=== PATIENT | female | born 1980 | race Two or more races ===

== ENCOUNTER 2020-07-13 11:05 | Outpatient (REF) | payer OTHER, SELFPAY | END 2020-07-13 11:06 | disposition home or self-care (01) | LOC: HO.LAB 11:05 | PROVIDERS: PCP Internal Medicine; Visit Provider Internal Medicine | DX: Z20.828 Contact with and (suspected) exposure to other viral communicable diseases (principal) | CPT/HCPCS: U0003 ==

== ENCOUNTER 2020-07-27 12:15 | Outpatient (REF) | payer OTHER, SELFPAY | END 2020-07-27 12:16 | disposition home or self-care (01) | LOC: HO.LAB 12:15 | PROVIDERS: Visit Provider Internal Medicine | DX: Z20.828 Contact with and (suspected) exposure to other viral communicable diseases (principal) | CPT/HCPCS: C9803; U0003 ==

== ENCOUNTER 2020-08-03 15:49 | Outpatient (REF) | payer OTHER, SELFPAY | END 2020-08-03 15:50 | disposition home or self-care (01) | LOC: HO.LAB 15:49 | PROVIDERS: PCP Internal Medicine; Visit Provider Internal Medicine | DX: Z20.828 Contact with and (suspected) exposure to other viral communicable diseases (principal) | CPT/HCPCS: C9803; U0003 ==

== ENCOUNTER 2020-09-08 08:40 | Outpatient (REF) | payer OTHER, SELFPAY ==
--- NOTE | 2020-09-08 08:46 | XR_ITS ---
EXAMINATION: XR CHEST CLINICAL INFORMATION: Chest pain COMPARISON: Previous chest x-ray October 2016 TECHNIQUE: 2 views of the chest were obtained. FINDINGS: The cardiac and mediastinal contours are stable. The lungs are clear. There is no pleural effusion or pneumothorax. There is curvature of the thoracic spine to the right. Bony structures are otherwise unremarkable. XR/XR chest 2V IMPRESSION: No evidence for acute disease in the chest.
== END 2020-09-08 08:41 | disposition home or self-care (01) ==
LOC: HO.XRAY 08:40
PROVIDERS: PCP Internal Medicine; Visit Provider Internal Medicine
DX: R07.9 Chest pain, unspecified (principal)
CPT/HCPCS: 71046

== ENCOUNTER 2021-01-07 12:09 | Outpatient (REF) | payer OTHER, SELFPAY ==
--- NOTE | ~2021-01-07 | MM_ITS ---
EXAMINATION: MM SCREENING DIGITAL BREAST TOMOSYNTHESIS, BILATERAL CLINICAL INFORMATION: Screening. Asymptomatic. Prior history reduction mammoplasty 2007. The lifetime risk of breast cancer based on the Tyrer-Cuzick Model is 8%. COMPARISON: Mammography: 11/01/2019, 10/26/2018, 10/24/2017 TECHNIQUE: Digital breast tomosynthesis is performed in both the craniocaudal and mediolateral oblique views along with computer-aided detection (CAD). Synthesized 2D images are generated from the tomosynthesis. FINDINGS: There are scattered areas of fibroglandular density (ACR BI-RADS breast composition Category b). There are no significant masses, abnormal calcifications, or other abnormalities. Parenchymal pattern is similar to prior exams. There is some minor bilateral scarring and benign bilateral anterior round and rim calcifications again seen consistent with the reduction mammoplasty. No significant changes. MM/MM tomosynthesis screening BI IMPRESSION: No mammographic evidence of malignancy. ASSESSMENT: BI-RADS 2: Benign RECOMMENDATION: Routine annual mammography screening. This patient's information was entered into a reminder system with a target due date for their next mammogram.
== END 2021-01-07 12:10 | disposition home or self-care (01) ==
LOC: HO.MAMMO 12:09
PROVIDERS: PCP Internal Medicine; Visit Provider Internal Medicine
DX: Z12.31 Encounter for screening mammogram for malignant neoplasm of breast (principal)
CPT/HCPCS: 77063; 77067

== ENCOUNTER 2022-03-01 08:27 | Outpatient (REF) | payer OTHER, SELFPAY ==
--- NOTE | ~2022-03-01 | XR_ITS ---
EXAMINATION: XR SHOULDER, RIGHT CLINICAL INFORMATION: Pain COMPARISON: None TECHNIQUE: AP external rotation, Grashey, scapular Y, and axillary views of the right shoulder. FINDINGS: Bone alignment is normal. No fracture or dislocation is seen. The glenohumeral joint is normal. There is mild arthritis at the acromioclavicular joint. There is a small soft tissue calcification adjacent to the greater tuberosity. XR/XR shoulder RT min 2V IMPRESSION: Mild arthritis at the acromioclavicular joint and small soft tissue calcification adjacent to the greater tuberosity.
== END 2022-03-01 08:28 | disposition home or self-care (01) ==
LOC: HO.XRAY 08:27
PROVIDERS: PCP Internal Medicine; Visit Provider Internal Medicine
DX: M25.511 Pain in right shoulder (principal)
CPT/HCPCS: 73030

== ENCOUNTER 2022-12-27 09:20 | Outpatient (REF) | payer OTHER, SELFPAY ==
--- NOTE | ~2022-12-27 | MM_ITS ---
EXAMINATION: MM SCREENING DIGITAL BREAST TOMOSYNTHESIS, BILATERAL CLINICAL INFORMATION: Screening. Asymptomatic. The lifetime risk of breast cancer based on the Tyrer-Cuzick Model is 8.2%. COMPARISON: Mammography: January 07, 2021 and studies dating back to October 24, 2017 TECHNIQUE: Digital breast tomosynthesis is performed in both the craniocaudal and mediolateral oblique views along with computer-aided detection (CAD). Synthesized 2D images are generated from the tomosynthesis. FINDINGS: There are scattered areas of fibroglandular density (ACR BI-RADS breast composition Category b). There are no significant masses, abnormal calcifications, or other abnormalities. MM/MM tomosynthesis screening BI IMPRESSION: No significant changes ASSESSMENT: BI-RADS 1: Negative RECOMMENDATION: Routine annual mammography screening. This patient's information was entered into a reminder system with a target due date for their next mammogram.
== END 2022-12-27 09:21 | disposition home or self-care (01) ==
LOC: HO.MAMMO 09:20
PROVIDERS: PCP Internal Medicine; Visit Provider Internal Medicine
DX: Z12.31 Encounter for screening mammogram for malignant neoplasm of breast (principal)
CPT/HCPCS: 77063; 77067

== ENCOUNTER 2023-03-07 09:28 | Outpatient (REF) | payer OTHER, SELFPAY ==
--- NOTE | ~2023-03-07 | XR_ITS ---
EXAMINATION: XR ELBOW, RIGHT CLINICAL INFORMATION: Pain. COMPARISON: None available. TECHNIQUE: AP, lateral, and oblique views of the right elbow. FINDINGS: The bones and soft tissues are normal. No fracture or joint effusion. Alignment is anatomic. Joint spaces are maintained. XR/XR elbow RT 2V IMPRESSION: Normal right elbow.
[2023-03-07 09:40] LABS: MANUAL DIFF FLAG NO
[2023-03-07 09:48] LABS: Basophils Absolute Auto 0.1 X10*3/uL (0.0-0.2); Basophils Percent Auto 0.6 % (0-2); Eosinophils Absolute Auto 0.6 X10*3/uL (0.0-0.4); Eosinophils Percent Auto 5.9 % (0-4); Hematocrit 34.9 % (37.0-47.0); Hemoglobin 11.4 g/dl (12.0-16.0); Imm Gran Abs Auto 0.04 X10*3/uL (0.00-0.03); Imm Gran Pct Auto 0.4 % (0.0-0.4); Lymphocytes Percent Auto 19.3 % (20-40); Mean Corpuscular HGB Conc 32.7 g/dl (31.0-35.0); Mean Corpuscular Hemoglobin 27.9 pg (27.0-33.0); Mean Corpuscular Volume 85.5 fL (80.0-98.0); Monocytes Absolute Auto 0.8 X10*3/uL (0.1-1.2); Monocytes Percent Auto 7.9 % (2-11); Neutrophils Absolute Auto 6.9 x10*3/uL (2.0-8.3); Neutrophils Percent Auto 65.9 % (45-73); Platelet Count 386 X10*3/uL (160-400); Red Blood Count 4.08 X10*6/uL (4.20-5.50); White Blood Count 10.5 X10*3/uL (4.8-10.8)
[2023-03-07 10:38] LABS: Alanine Aminotransferase 14 U/L (0-31); Albumin Level 3.5 g/dL (3.5-5.0); Alkaline Phosphatase 57 U/L (39-117); Aspartate Amino Transferase 13 U/L (5-31); Bilirubin Total 0.4 mg/dL (0.0-1.0); Blood Urea Nitrogen 8 mg/dL (9-16); Calcium 8.8 mg/dL (8.4-10.2); Carbon Dioxide 28 mmol/L (22-29); Chloride 107 mmol/L (96-108); Cholesterol 206 mg/dL; Estimated Glomerular Filt Rate > 60; Glucose Fasting 96 mg/dL (60-99); HDL Cholesterol 54 mg/dL; Iron 55 mcg/dL (30-160); LDL Cholesterol Calculated 134 mg/dl; Percent Iron Saturation 16 % (15-50); Potassium 4.2 mmol/L (3.3-5.1); Sodium 140 mmol/L (135-145); Total Iron Binding Capacity 336 mcg/dL (228-428); Total Protein 6.8 g/dL (6.5-8.0); Triglycerides 92 mg/dL; Unsaturated Iron Binding 281 ug/dL
[2023-03-07 10:46] LABS: Anion Gap 9 (12-20)
[2023-03-07 11:00] LABS: Thyroid Stimulating Hormone 1.25 uIU/mL (0.32-4.0); Vitamin D 25-OH Total 27.9 ng/mL (>30)
== END 2023-03-07 09:29 | disposition home or self-care (01) ==
LOC: HO.LAB 09:28
PROVIDERS: PCP Internal Medicine; Visit Provider Internal Medicine
DX: M25.521 Pain in right elbow (principal); D64.9 Anemia, unspecified; E66.9 Obesity, unspecified; E55.9 Vitamin D deficiency, unspecified
CPT/HCPCS: 36415; 73070; 80053; 80061; 82306; 83540; 84443; 85025

== ENCOUNTER 2023-08-31 12:32 | Emergency (ER) | payer OTHER, SELFPAY ==
--- NOTE | ~2023-08-31 | XR_ITS ---
EXAMINATION: XR CHEST, 2 VIEWS CLINICAL INFORMATION: Cough COMPARISON: 09/08/2020 TECHNIQUE: PA and lateral views of the chest were obtained. FINDINGS: Lungs are clear. No consolidation, pneumothorax, or pleural effusion. Cardiac and mediastinal contours are normal. Pulmonary vasculature is unremarkable. Trachea is midline. Mild to moderate multilevel degenerative disc disease in the thoracic spine with slight scoliotic curvature. XR/XR chest 2V IMPRESSION: No acute cardiopulmonary findings.
[2023-08-31 13:18] VITALS: BP 136/81; PULSE 111; RESP 20; TEMP 37.2; O2SAT 95; BMI 33.3
--- NOTE | 2023-08-31 13:19 | ED_ITS ---
HPI - URI/Sore Throat General Chief Complaint: Upper Respiratory Symptoms Stated Complaint: Flu Like Symptoms Time Seen by Provider: 08/31/23 15:08 Source: patient Mode of arrival: ambulatory Limitations: no limitations History of Present Illness HPI Narrative: 43-year-old female with no known medical history presents to the ER with complaints of 3 weeks of congestion, body aches, sore throat, headache, tactile temps, nausea/vomiting/diarrhea. had exposure to COVID a few weeks ago but her tests at home have been negative at home. no chest pain, difficulty breathing, abdominal pain, neck pain or neck stiffness. Related Data Previous Rx's Medication Instructions Recorded ibuprofen 600 mg tablet 600 mg PO TID #90 tabs 08/11/23 methocarbamol 500 mg tablet 500 mg PO TID 30 days #90 tabs 08/11/23 ondansetron 4 mg disintegrating 4 mg PO Q6H PRN nausea and 08/31/23 tablet vomiting #15 tabs Allergies Allergy/AdvReac Type Severity Reaction Status Date / Time latex [Latex] Allergy Mild RASH/ITCH Verified 08/31/23 13:18 Review of Systems Review of Systems: Yes all other systems are reviewed and are negative Constitutional: Constitutional: Reports no additional constitutional complaints, Reports body ache(s), Denies chills, Denies fever(s), Reports headache(s) and Denies weakness Eyes: Eyes: Reports no additional eye complaints and Denies change in vision ENT: Reports system reviewed and no additional complaints, except as documented, Denies dizziness, Reports headache(s), Reports nasal congestion, Denies nasal discharge, Denies neck pain and Reports sore throat Cardiovascular: Cardiovascular: Reports no additional cardiovascular complaints, Denies chest pain, Denies leg edema and Denies dyspnea Respiratory: Respiratory: Reports no additional respiratory complaints, Denies cough and Denies dyspnea Gastrointestinal: Gastrointestinal: Reports no additional gastrointestinal complaints, Denies abdominal pain, Reports diarrhea, Reports nausea and Reports vomiting Genitourinary: Genitourinary: Reports no additional female genitourinary complaints and Denies urinary incontinence Musculoskeletal: Musculoskeletal: Reports no additional musculoskeletal complaints, Denies back pain, Denies arthralgias, Denies joint swelling, Denies neck pain, Denies numbness and Denies tingling Integumentary/Breasts: Skin/Breast: Reports system reviewed and no additional complaints, except as docu and Denies rash Neurologic: Reports system reviewed and no additional complaints, except as documented, Denies Abnormal speech present, Denies dizziness, Reports headache(s), Denies numbness, Denies tingling and Denies weakness PMFSH Past Medical History Attestation statement: The following information was validated with the patient. Source: old records reviewed and nursing notes reviewed Medical History Obesity, Class II, BMI 35-39.9 Tubal ligation evaluation Upper back pain Right shoulder pain Anemia Surgical History History of tubal ligation Hx of breast reduction, elective Hx laparoscopic cholecystectomy History of carpal tunnel release H/O gastric sleeve Family History Family History Mother High blood pressure Diabetes Father Diabetes High blood pressure Social History Social History Housing: Apartment Alcohol intake: current Alcohol intake frequency: holidays/special occasions only Alcohol type: beer Patient Tobacco Use Status: Never used Tobacco e-Cigarette/Vaping Use: Never Used Second Hand Smoke Exposure: Yes Advance Directives: No service: No Current occupational status: unemployed Current occupational exposures/hazards: No Cognitive needs: No Hearing needs: No Vision needs: Yes Physical Exam Vital Signs: Vital Signs: Last Vital Signs Temp 99.0 F 08/31/23 13:18 Pulse 111 H 08/31/23 13:18 Resp 20 08/31/23 13:18 BP 136/81 08/31/23 13:18 Pulse Ox 95 08/31/23 13:18 BMI result Body Mass Index 33.3 Const: General: cooperative, healthy appearing, comfortable and no acute distress Orientation/consciousness: patient oriented x3 Limitations: no li mitations HEENT: Head: Yes normal to inspection Ears: hearing grossly normal bilaterally and TM's normal bilaterally General nose exam: Normal external nose present Face and sinus: Yes normal facial exam Mouth: Normal oral and palatal mucosa present Throat: Yes posterior oropharynx normal, Yes tonsils normal and Yes uvula midline Eyes: General: appearance normal, both eyes and all related structures Pupils: Equal, round and reactive pupils present Neck: Neck: Yes normal visual inspection, Yes full ROM, Yes no lymphadenopathy and Yes no meningeal signs Chest: Chest palpation & inspection: normal inspection of the chest Resp: Effort & Inspection: normal respiratory effort Auscultation: clear to auscultation bilaterally Cardio: Rate: regular rate Rhythm: regular rhythm Peripheral pulses: Peripheral pulses 2+ throughout GI: Inspection: Yes normal to inspection Palpation (GI): Soft to palpation and nontender Auscultation: normal bowel sounds Back/Spine/Pelvis: Thoracic/Lumbar Spine: thoracic and lumbar spine normal to inspection Skin: General skin exam: no rashes or lesions noted Neuro: General: patient oriented x3, no meningeal signs, no focal motor deficits and normal sensation to monofilament Cranial nerves: Yes Equal, round and reactive pupils present Cognition (Neuro): normal cognition Speech: No Abnormal speech present Gait exam (Neuro): Normal gait present Motor exam (neuro): 5/5 motor strength present throughout Extrem: General: Yes normal to inspection, Yes no pedal edema and Yes no calf tenderness Course Course Course Narrative: RME: 43yo F w/PMHx anemia c/o ECHAVARRIA, myalgias, sore throat, rhinorrhea, cough, wheezing x3 weeks. +sick contacts. Tested negative on home COVID test. low grade temp, tachycardic likely from fever Viral testing, CXR ordered Full HPI, ROS and PE to be performed by primary ED provider. Reevaluation(s) Reevaluation #1: flu screen is positive. No hypoxia or tachypnea. Patient is tolerating p.o.. Reviewed supportive care at home. Reviewed worrisome signs and symptoms of when to return to the emergency room. Comfortable plan for discharge home. Medical Decision Making Medical Decision Making MDM Narrative: 43-year-old female with no known medical history presents to the ER with complaints of 3 weeks of congestion, body aches, sore throat, headache, tactile temps, nausea/vomiting/diarrhea. had exposure to COVID a few weeks ago but her tests at home have been negative at home. no chest pain, difficulty breathing, abdominal pain, neck pain or neck stiffness. exam is benign. Vitals are stable. Will send viral testing, change chest x-ray Differential Diagnosis Differential Diagnoses: The differential diagnosis associated with the presentation includes influenza, viral syndrome, otitis media, strep pharyngitis, pneumonia Admission/Observation Consideration of admission/observation: Escalation of care including admission/observation considered no hypoxia or tachypnea requiring supplemental oxygen and or admission Lab Data MDM Lab Attestation statement: I reviewed the patient's lab results. Labs: Lab Results 08/31/23 Range/Units 13:26 Influenza Type A (PCR) POSITIVE A (Negative) Influenza Type B (PCR) NEGATIVE (Negative) RSV RNA Qual (PCR) NEGATIVE (Negative) SARS-CoV-2 RNA (RT-PCR) NEGATIVE (Negative) S. pyogenes GrpA ANNE Negative (Negative) Independent Interpretation I performed an independent interpretation of an: Plain X-Ray Interpretation: I independently reviewed the x-ray and agree with Radiology report Radiology Impression Discussion of test interpretation with radiology: I have reviewed the radiologist's reading. Radiologist Impression: [address] [address] XRay Report Signed Patient: Janice Silva MR#: [id number] : 1980 Acct:[id number] Age/Sex: 43 / F ADM Date: 08/31/23 Loc: .ED Attending Dr: Ordering Physician: Nancy Mary Date of Service: 08/31/23 Procedure(s): XR chest 2V Accession Number(s): [id number] cc: Nancy Mary; Jessika Cornejo MD~ EXAMINATION: XR CHEST, 2 VIEWS CLINICAL INFORMATION: Cough COMPARISON: 09/08/2020 TECHNIQUE: PA and lateral views of the chest were obtained. FINDINGS: Lungs are clear. No consolidation, pneumothorax, or pleural effusion. Cardiac and mediastinal contours are normal. Pulmonary vasculature is unremarkable. Trachea is midline. Mild to moderate multilevel degenerative disc disease in the thoracic spine with slight scoliotic curvature. XR/XR chest 2V IMPRESSION: No acute cardiopulmonary findings. Independent Historian Clinical information obtained from an independent historian. History obtained from or confirmed by: Spouse Prescription Management I considered prescription management with: Antiviral Discharge Plan Discharge Clinical Impression: Influenza Patient Disposition: Home, Self-Care Instructions: Influenza (ED) Additional Instructions: alternate Motrin /Tylenol for any pain or fever, increase fluids, rest Return for any worsening symptoms Follow-up with primary care doctor for any persistent symptoms Prescriptions: New ondansetron 4 mg tablet,disintegrating 4 mg PO Q6H PRN (Reason: nausea and vomiting) Qty: 15 0RF No Action methocarbamol 500 mg tablet 500 mg PO TID 30 Days Qty: 90 0RF ibuprofen 600 mg tablet 600 mg PO TID Qty: 90 0RF Referrals: Jessika Cornejo MD [Primary Care Provider] - 1 week Stand Alone Forms: Work/School Release
[2023-08-31 14:14] LABS: IDNOW Serial# 08D9AD1C; Strep A Nucleic Acid Negative (Negative)
[2023-08-31 14:37] LABS: Influenza A PCR POSITIVE (Negative); Influenza B PCR NEGATIVE (Negative); Resp Syncy Virus RNA Qual PCR NEGATIVE (Negative); SARS COV2 PCR INHOUSE NEGATIVE (Negative)
[2023-08-31 16:20] VITALS: BP 114/66; PULSE 98; RESP 20; TEMP 37; O2SAT 96
== END 2023-08-31 16:42 | disposition home or self-care (01) ==
PROVIDERS: Physician Assistant; Emergency Provider Emergency Medicine Emergency Medical Services; PCP Internal Medicine
DX: J10.1 Influenza due to other identified influenza virus with other respiratory manifestations (principal); M79.10 Myalgia, unspecified site; R11.2 Nausea with vomiting, unspecified; R05.9 Cough, unspecified; Z20.822 Contact with and (suspected) exposure to COVID-19; Z20.828 Contact with and (suspected) exposure to other viral communicable diseases
CPT/HCPCS: 0241U; 71046; 87651; 99282; 99283

== ENCOUNTER 2024-01-02 09:23 | Outpatient (REF) | payer OTHER, SELFPAY ==
--- NOTE | ~2024-01-02 | MM_ITS ---
EXAMINATION: MM SCREENING DIGITAL BREAST TOMOSYNTHESIS, BILATERAL CLINICAL INFORMATION: Screening. Asymptomatic. Prior history reduction mammoplasty 2007. COMPARISON: Mammography: 12/27/2022, 01/07/2021, 11/01/2019 (new baseline after mammoplasty), 10/26/2018, 10/24/2017 TECHNIQUE: Digital breast tomosynthesis is performed in both the craniocaudal and mediolateral oblique views along with computer-aided detection (CAD). Synthesized 2D images are generated from the tomosynthesis. FINDINGS: There are scattered areas of fibroglandular density (ACR BI-RADS breast composition Category b). There are stable bilateral skin calcifications. There is a stable parenchymal asymmetry in the 6:00 axis of the left breast on the cc view, likely related to reduction mammoplasty scarring. There are a few scattered dystrophic calcifications. There are no suspicious masses, suspicious grouped calcifications, or areas of architectural distortion in either breast. The parenchymal pattern is stable from prior exams. No skin or axillary abnormalities. MM/MM tomosynthesis screening BI IMPRESSION: -No mammographic evidence of malignancy. -Stable benign post reduction mammoplasty changes. ASSESSMENT: BI-RADS BI-RADS 2 - Benign Findings RECOMMENDATION: Routine annual mammography screening. 1 year F/U This examination should not preclude the clinical evaluation of a suspicious palpable abnormality. This patient's information was entered into a reminder system with a target due date for their next mammogram.
== END 2024-01-02 09:24 | disposition home or self-care (01) ==
LOC: HO.MAMMO 09:23
PROVIDERS: PCP Internal Medicine; Visit Provider Internal Medicine
DX: Z12.31 Encounter for screening mammogram for malignant neoplasm of breast (principal)
CPT/HCPCS: 77063; 77067

== ENCOUNTER → 2024-01-02 09:30 | Outpatient (BNV) | payer OTHER, SELFPAY | PROVIDERS: PCP Internal Medicine; Visit Provider Radiology Diagnostic Radiology | DX: Z12.31 Encounter for screening mammogram for malignant neoplasm of breast (principal) | CPT/HCPCS: 77063; 77067 ==

== ENCOUNTER 2024-01-22 17:13 | Outpatient (AMB) | payer OTHER, SELFPAY ==
[2024-01-22 17:21] VITALS: BP 120/70; BMI 32.7
--- NOTE | 2024-01-22 17:21 | MHC.PC.OV ---
Vital Signs 01/22/24 17:21 Height 5 ft 2 in Weight 179 lb BMI 32.7 BP 120/70 Blood Pressure Location Lt brachial Position Sitting Intake Visit Reasons: f/u Arm Pain Intake Note: Patient here for a follow up Arm pain Passenger Attendant Required: No Accompanied by: Self / Same As Patient Allergies latex [Latex] Allergy (Mild, Verified 01/22/24 17:47) RASH/ITCH Medication List - Last Reconciled 01/22/24 by Jessika Richards MD ibuprofen 600 mg PO TID methocarbamol 500 mg PO TID 30 days ondansetron 4 mg PO Q6H PRN Tobacco use date assessed: 01/22/24 Dental Screening Dental Screen Date: 01/22/24 Did you have a dental visit in the last 12 months?: Yes Did you have a dental problem in the last 6 months where you did not have access to dental care?: No Was dental information given to patient?: Patient has dentist HPI HPI Comments History of Present Illness Details This is a 43-year-old female that complains of right shoulder pain and right elbow pain that has been present for over a month. Has full active range of motion. X-ray of the elbow was normal. Will be referred to Ortho. [facility] Medical History (Updated 01/22/24 @ 17:55 by Jessika Richards MD) Obesity, Class II, BMI 35-39.9 Tubal ligation evaluation Upper back pain Right shoulder pain Anemia Surgical History History of tubal ligation Hx of breast reduction, elective Hx laparoscopic cholecystectomy History of carpal tunnel release H/O gastric sleeve Family History Mother High blood pressure Diabetes Father Diabetes High blood pressure Social History Housing: Apartment Alcohol intake: current Alcohol intake frequency: holidays/special occasions only Alcohol type: beer Patient Tobacco Use Status: Never used Tobacco e-Cigarette/Vaping Use: Never Used Second Hand Smoke Exposure: Yes service: No Current occupational status: employed Current occupational exposures/hazards: No Cognitive needs: No Hearing needs: No Vision needs: Yes Questionnaire PHQ-9 Over the last 2 weeks, how often have you been bothered by any of the following problems? 1. Little interest or pleasure in doing things: not at all 2. Feeling down, depressed, or hopeless: not at all 3. Trouble falling or staying asleep, or sleeping too much: not at all 4. Feeling tired or having little energy: not at all 5. Poor appetite or overeating: not at all 6. Feeling bad about yourself - or that you are a failure or have let yourself or your family down: not at all 7. Trouble concentrating on things, such as reading the newspaper or watching television: not at all 8. Moving or speaking so slowly that other people could have noticed. Or the opposite - being so fidgety or restless that you have been moving around a lot more than usual: not at all 9. Thoughts that you would be better off or of hurting yourself in some way: not at all Total score: 0 Depression Screening Interpretation: Negative Depression Screening Done: Yes 38236 - PHQ-9 Billing: Yes Source: Developed by Drs. Abhi Ramirez, Keila Grove, Rafael Fleming and colleagues, with an educational suzanne from [employer]. Thrive Questionnaire Date Thrive assessed: 01/22/24 I am a: Patient What is your living situation today?: I have a steady place to live Within the past 12 months, did the food you bought not last and you didn't have the money to get more?: Never true Within the past 12 months, did you worry whether your food would run out before you got money to buy more?: Never true Do you have trouble paying for medicines?: No Do you have trouble getting transportation to medical appointments?: No Do you have trouble paying your heating and electricity bill?: No Do you have trouble taking care of your child, family member or friend?: No Do you have trouble with day-to-day activities such as bathing, preparing meals, shopping, managing finances, etc.?: No Are you currently unemployed and looking for a job?: No Are you interested in more education?: No Please select the resources that you would like help with: None Currently or been in a relationship where the following occur: no concerns reported THRIVE Score: 0 AUDIT C Alcohol Use Questionnaire (AUDIT-C) 1. How often do you have a drink containing alcohol?: Monthly or less 2. How many drinks containing alcohol do you have on a typical day when you are drinking?: 1 or 2 3. How often do you have six or more drinks on one occasion?: Never Total Score: 1 TOBI-7 AMB Questionnaire TOBI-7 Date TOBI - 7 assessed: 01/22/24 Feeling nervous, anxious, or on edge: 3 = Nearly every day Not being able to stop or control worryin = Not at all Worrying too much about different things: 1 = Several days Trouble relaxin = More than half the days Being so restless that it is hard to sit still: 0 = Not at all Becoming easily annoyed or irritable: 2 = More than half the days Feeling afraid as if something awful might happen: 3 = Nearly every day Total TOBI-7 score (0-4 normal; 5-9 mild; 10-14 moderate; 15-21 severe): 11 Source: Developed by Drs. Abhi Ramirez, Keila Grove, Rafael Fleming and colleagues, with an educational suzanne from [employer]. TOBI-7 Assessment Billing TOBI-7 Assessment Tool: TOBI-7 Assessment 57058 Review of Systems Const All systems reviewed & are unremarkable except as noted in HPI and below Eyes Reports no additional complaints, Denies change in vision and Denies other visual disturbances Card Denies chest pain at rest, Denies chest pain with activity, Denies edema, Denies irregular heart rhythm, Denies claudication, Denies dyspnea, Denies dyspnea on exertion, Denies orthopnea, Denies paroxysmal nocturnal dyspnea and Denies slow heart rate Resp Denies cough, Denies dyspnea and Denies dyspnea on exertion Musc Reports arthralgias Physical exam (Primary Care) Vital Signs: Last Vital Signs BP 120/70 01/22/24 17:21 BMI result Body Mass Index 32.7 Tobacco/Smoking Status: Tobacco use Status Tobacco use date assessed 01/22/24 01/22/24 17:28 Patient Tobacco Use Status Never used Tobacco 01/22/24 17:28 e-Cigarette/Vaping Use Never Used 01/22/24 17:28 PHQ-9: PHQ-9 Score PHQ-9: Total score 0 01/22/24 17:53 Depression Screening Interpretation: Negative Thrive Assessment: Date of Thrive Assessment Date Thrive assessed 01/22/24 01/22/24 17:28 Currently or been in a relationship where the following occur: no concerns reported Resp Effort & Inspection: normal respiratory effort Auscultation: clear to auscultation bilaterally Cardio Jugular venous distension: no JVD Rate: regular rate Rhythm: regular rhythm Heart sounds: S1 normal heart sound present and S2 normal heart sound present Extrem General: Yes full ROM Assessment and Plan Assessment & Plan (1) Pain in right arm: Code(s): M79.601 - Pain in right arm Plan: Follow-up with ortho. (2) Right elbow pain: Code(s): M25.521 - Pain in right elbow Plan: Follow-up with ortho. Orders: Orders XR shoulder RT min 2V Today M25.511 - Pain in right shoulder XR humerus RT Today M79.601 - Pain in right arm Referrals Orthopedics Referral M25.521 - Pain in right elbow Medications: Refilled ondansetron 4 mg PO Q6H PRN 15 tabs 0RF nausea and vomiting methocarbamol 500 mg PO TID 90 tabs 0RF 30 days ibuprofen 600 mg PO TID 90 tabs 0RF Coding Level of Care Code Est Pt Level 3 (19612) Diagnoses Pain in right arm M79.601 Right elbow pain M25.521 Additional Codes TOBI-7 Assessment Billing - TOBI-7 Assessment Tool: TOBI-7 Assessment 15074 ([id number]) Time Spent (min) 19
== END 2024-01-22 17:59 | disposition home or self-care (01) ==
PROVIDERS: PCP Internal Medicine; Visit Provider Internal Medicine
DX: M79.601 Pain in right arm (principal); M25.521 Pain in right elbow
CPT/HCPCS: 99213

== ENCOUNTER 2024-02-15 12:50 | Outpatient (REF) | payer OTHER, SELFPAY ==
--- NOTE | ~2024-02-15 | XR_ITS ---
EXAMINATION: XR RIGHT HUMERUS XR RIGHT SHOULDER CLINICAL INFORMATION: Patient states right arm and shoulder pain, unable to lift arm without pain. No trauma. COMPARISON: Right elbow 03/07/2023, right shoulder 03/01/2021. TECHNIQUE: 3 views of the right shoulder. 3 views of the right humerus. FINDINGS: RIGHT SHOULDER: Moderate degenerative changes in the acromioclavicular joint. Glenohumeral alignment preserved. Dextroscoliosis with degenerative changes in the partially imaged upper thoracic spine. Increased curvilinear calcification in the soft tissues along the lateral aspect of the greater tuberosity. RIGHT HUMERUS: Increased curvilinear calcifications in the soft tissues along the superolateral aspect of the humeral head. The humerus appears intact. Please refer to the separate report for more detailed evaluation regarding distal humerus/elbow. XR/XR humerus RT IMPRESSION: 1. Moderate degenerative changes in the acromioclavicular joint. 2. Increased curvilinear calcification in the soft tissues along the lateral aspect of the greater tuberosity. 3. Please refer to the separate report for more detailed evaluation regarding distal humerus/elbow.
--- NOTE | ~2024-02-15 | XR_ITS ---
EXAMINATION: XR RIGHT HUMERUS XR RIGHT SHOULDER CLINICAL INFORMATION: Patient states right arm and shoulder pain, unable to lift arm without pain. No trauma. COMPARISON: Right elbow 03/07/2023, right shoulder 03/01/2021. TECHNIQUE: 3 views of the right shoulder. 3 views of the right humerus. FINDINGS: RIGHT SHOULDER: Moderate degenerative changes in the acromioclavicular joint. Glenohumeral alignment preserved. Dextroscoliosis with degenerative changes in the partially imaged upper thoracic spine. Increased curvilinear calcification in the soft tissues along the lateral aspect of the greater tuberosity. RIGHT HUMERUS: Increased curvilinear calcifications in the soft tissues along the superolateral aspect of the humeral head. The humerus appears intact. Please refer to the separate report for more detailed evaluation regarding distal humerus/elbow. XR/XR shoulder RT min 2V IMPRESSION: 1. Moderate degenerative changes in the acromioclavicular joint. 2. Increased curvilinear calcification in the soft tissues along the lateral aspect of the greater tuberosity. 3. Please refer to the separate report for more detailed evaluation regarding distal humerus/elbow.
== END 2024-02-15 12:51 | disposition home or self-care (01) ==
LOC: HO.XRAY 12:50
PROVIDERS: PCP Internal Medicine; Visit Provider Internal Medicine
DX: M25.511 Pain in right shoulder (principal); M79.601 Pain in right arm
CPT/HCPCS: 73030; 73060

== ENCOUNTER 2024-02-26 08:44 | Outpatient (REF) | payer OTHER, SELFPAY ==
--- NOTE | ~2024-02-26 | XR_ITS ---
EXAMINATION: XR ELBOW, RIGHT CLINICAL INFORMATION: Pain at the right elbow. COMPARISON: None available. TECHNIQUE: AP, lateral, and oblique views of the right elbow. FINDINGS: The bones and soft tissues are normal. No fracture or joint effusion. Alignment is anatomic. Joint spaces are maintained. XR/XR elbow RT min 3V IMPRESSION: Normal right elbow.
== END 2024-02-26 08:45 | disposition home or self-care (01) ==
LOC: HO.HOSX 08:44
PROVIDERS: Visit Provider Physician Assistant
DX: M75.31 Calcific tendinitis of right shoulder (principal); M77.11 Lateral epicondylitis, right elbow
CPT/HCPCS: 20610; 73080; J1010

== ENCOUNTER 2024-02-26 10:32 | Outpatient (AMB) | payer OTHER, SELFPAY ==
[2024-02-26 10:36] VITALS: BMI 32.7
--- NOTE | 2024-02-26 10:36 | A.OFFVIS_ITS ---
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 Patient reports her pain has been present for about 6 months and the past month her pain has increased. Denies injury. Limited ROM. States constant pain in her shoulder that radiates down to her elbow. Denies numbness or tingling. No previous tx. Finds no relief with ibuprofen. 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 She currently states she has constant pain and limited ROM in her shoulder that radiates down to her elbow. Her pain is aggravated with sleeping. She denies any numbness or tingling. She finds mild relief with ibuprofen. She denies any injury and has not had any treatment in the past. She does not have a history of diabetes. [facility] Medical History Obesity, Class II, BMI 35-39.9 Tubal ligation evaluation Upper back pain Right shoulder pain Anemia Surgical History History of tubal ligation Hx of breast reduction, elective Hx laparoscopic cholecystectomy History of carpal tunnel release H/O gastric sleeve Family History Mother High blood pressure Diabetes Father Diabetes High blood pressure Social History (Updated 02/26/24 @ 10:58 by BREANNA Krueger) Housing: Apartment Alcohol intake: current Alcohol intake frequency: holidays/special occasions only Alcohol type: beer Patient Tobacco Use Status: Never used Tobacco e-Cigarette/Vaping Use: Never Used Second Hand Smoke Exposure: Yes service: No Current occupational status: employed 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, 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 Current occupational exposures/hazards: No Cognitive needs: No Hearing needs: No Vision needs: Yes Review of Systems Const All systems reviewed & are unremarkable except as noted in HPI and below Physical Exam Vital Signs: BMI result Body Mass Index 32.7 Const General: cooperative, healthy appearing, comfortable, no acute distress, well developed and alert Orientation/consciousness: patient oriented x3 HEENT Head: Yes normal to inspection, Yes normocephalic and Yes atraumatic Eyes General: appearance normal, both eyes and all related structures Resp Effort & Inspection: normal respiratory effort and able to speak in complete sentences Cardio Rate: regular rate Peripheral pulses: Peripheral pulses 2+ throughout GI Palpation (GI): Soft to palpation Skin Lesions: no lesions Rashes: no rashes Neuro General: patient oriented x3 Extrem Other: Right shoulder: Normal to inspection. Tenderness over the bicipital groove and along the deltoid region of the shoulder. Forward flexion to 175, external rotation to 90, internal rotation to S1. 5/5 RTC strength. Negative Sheppard and cross body abduction. NVI. Right elbow: Skin intact. No erythema or swelling. ROM full without pain. Tenderness over the lateral epicondyle and pain with resisted wrist extension. NVI. Office Procedures Joint Injection/Drain Joint Injection/Drain Primary Site: right shoulder Prep: site was prepped using aseptic technique, ethochloride spray was applied and injection warnings given Injected: 80 mg of, DepoMedrol, with 8 mL of, 1% plain lidocaine and in the subcromial space Approach Used: posterolateral Procedure: The patient tolerated the procedure well and there was some relief with the local anesthesia Coding 40206 - Glenohumeral/Tronchanteric Bursa/Intraarticular Procedure code (CPT) selection complete Results Reviewed Results Reviewed: Xrays were obtained in the office today and personally reviewed by me of the right elbow negative for acute fracture or dislocations. Assessment & Plan Assessment & Plan (1) Calcific tendonitis of right shoulder: Code(s): M75.31 - Calcific tendinitis of right shoulder Category: Medical (2) Lateral epicondylitis, right elbow: Code(s): M77.11 - Lateral epicondylitis, right elbow Category: Medical Plan We discussed options today, which include steroid injection. The patient did consent to move forward with the right shoulder injection, which was tolerated well. I recommended rest, ice, and elevation and OTC anti-inflammatories as needed for discomfort. She was also given a course of physical therapy in the office today for her right shoulder and right elbow. If symptoms persist or worsen over the next 6-8 weeks, patient will contact the office, otherwise follow-up as needed. Orders: Orders XR elbow RT min 3V Today M25.521 - Pain in right elbow PT Evaluation and Treatment Today M75.31 - Calcific tendinitis of right shoulder, M77.11 - Lateral epicondylitis, right elbow Patient Instructions: Scribed for Maya Obrien PA-C, by Kvng May biomedical instrument technician, on 02/26/2024 at 10:45 AM EST.? I, Maya Obrien PA-C, have personally reviewed and agree with the information entered by the scribe. Coding Level of Care Code New Pt Level 3 (74110) Diagnoses Calcific tendonitis of right shoulder M75.31 Lateral epicondylitis, right elbow M77.11 CPT Codes Coding - Joint 7: 49448 - Glenohumeral/Tronchanteric Bursa/Intraarticular ([id number])
== END 2024-02-26 11:59 | disposition home or self-care (01) ==
PROVIDERS: PCP Internal Medicine; Visit Provider Physician Assistant
DX: M75.31 Calcific tendinitis of right shoulder (principal); M77.11 Lateral epicondylitis, right elbow
CPT/HCPCS: 20610; 99204

== ENCOUNTER 2024-04-23 14:44 | Outpatient (AMB) | payer SELFPAY ==
[2024-04-23 14:47] VITALS: BP 122/80; BMI 34.2
--- NOTE | 2024-04-23 14:47 | MHC.PC.OV ---
Vital Signs 04/23/24 14:47 Height 5 ft 2 in Weight 187 lb BMI 34.2 BP 122/80 Blood Pressure Location Lt brachial Position Sitting Intake Visit Reasons: Annual Exam Intake Note: Patient here for an annual physical exam Cash Applications Associate Required: No Accompanied by: Self / Same As Patient Allergies latex [Latex] Allergy (Mild, Verified 04/23/24 15:00) RASH/ITCH Medication List - Last Reconciled 04/23/24 by Jessika Richards MD ibuprofen 600 mg PO TID methocarbamol 500 mg PO TID 30 days ondansetron 4 mg PO Q6H PRN Tobacco use date assessed: 01/22/24 Dental Screening Dental Screen Date: 01/22/24 HPI HPI Comments History of Present Illness Details This is a 43-year-old female that comes for her physical exam. Mammogram done 2023 was normal. Last Pap smear was as per patient over 4 years ago. No family history of colon cancer and she will prefer to do Cologuard for her screen. She is obese with a BMI of 34.2 and has tried diet and exercise with no significant improvement. I will start her on Wegovy. [facility] Medical History Obesity, Class II, BMI 35-39.9 Tubal ligation evaluation Upper back pain Right shoulder pain Anemia Surgical History History of tubal ligation Hx of breast reduction, elective Hx laparoscopic cholecystectomy History of carpal tunnel release H/O gastric sleeve Family History Mother High blood pressure Diabetes Father Diabetes High blood pressure Social History Housing: Apartment Alcohol intake: current Alcohol intake frequency: holidays/special occasions only Alcohol type: beer Patient Tobacco Use Status: Never used Tobacco e-Cigarette/Vaping Use: Never Used Second Hand Smoke Exposure: Yes service: No Current occupational status: employed 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 Abhi Ramirez, Keila Grove, Rafael Fleming and colleagues, with an educational suzanne from [employer]. Review of Systems Const All systems reviewed & are unremarkable except as noted in HPI and below Card Denies chest pain at rest, Denies chest pain with activity, Denies edema, Denies irregular heart rhythm, Denies claudication, Denies dyspnea, Denies dyspnea on exertion, Denies orthopnea, Denies paroxysmal nocturnal dyspnea and Denies slow heart rate Resp Denies cough, Denies dyspnea and Denies dyspnea on exertion GI Denies abdominal pain, Denies change in bowel habits, Denies excessive flatus, Denies nausea and Denies vomiting Denies urinary incontinence, Denies urinary hesitancy and Denies urinary urgency Musc Denies abnormal gait, Denies atrophy, Denies deformity and Denies limited range of motion Skin/Breast Denies bleeding lesions, Denies changing lesions and Denies rash Neuro Denies abnormal gait and Denies lack of coordination Physical exam (Primary Care) Vital Signs: Last Vital Signs BP 122/80 04/23/24 14:47 BMI result Body Mass Index 34.2 BMI Assessment/Plan discussion: High BMI High, discussed plan: lifestyle, weight reduction, dietary and physical activity Tobacco/Smoking Status: Tobacco use Status Tobacco use date assessed 01/22/24 04/23/24 14:52 Patient Tobacco Use Status Never used Tobacco 04/23/24 14:52 e-Cigarette/Vaping Use Never Used 04/23/24 14:52 Thrive Assessment: Date of Thrive Assessment Date Thrive assessed 01/22/24 04/23/24 14:52 [facility] Head: Yes normal to inspection, Yes normocephalic and Yes atraumatic Ears: external ears normal Eyes General: appearance normal, both eyes and all related structures Eyelids: Yes eyelids normal Conjunctivae: conjunctivae normal Neck Neck: Yes normal visual inspection and Yes supple Resp Effort & Inspection: normal respiratory effort Auscultation: clear to auscultation bilaterally Cardio Jugular venous distension: no JVD Rate: regular rate Rhythm: regular rhythm Heart sounds: S1 normal heart sound present and S2 normal heart sound present GI Inspection: Yes normal to inspection Palpation (GI): Soft to palpation and nontender Auscultation: normal bowel sounds Skin General skin exam: no rashes or lesions noted Neuro General: no focal motor deficits Extrem General: Yes full ROM Psych Appearance: grossly normal Assessment and Plan Assessment & Plan (1) Physical exam: Code(s): Z00.00 - Encounter for general adult medical examination without abnormal findings Plan: Repeat in a year. Orders: Orders Lipid Panel Today Z00.00 - Encounter for general adult medical examination without abnormal findings Comprehensive [place]. Panel Fast Today Z00.00 - Encounter for general adult medical examination without abnormal findings Referrals INSTRUMENT CALIBRATOR Referral Z12.4 - Encounter for screening for malignant neoplasm of cervix Cologuard Test Z12.11 - Encounter for screening for malignant neoplasm of colon, Z12.12 - Encounter for screening for malignant neoplasm of rectum Medications: New semaglutide (weight loss) (Seema) administer weeks 1 through 4 of therapy 0.25 mg (0.5 mL) subcut QWEEK 2 mL 0RF 4 weeks E66.9 - Obesity, unspecified, Z68.34 - Body mass index [BMI] 34.0-34.9, adult Coding Level of Care Code Est Pt Prev Care 40-64y(34949) Diagnoses Physical exam Z00.00 Time Spent (min) 31
== END 2024-04-23 15:12 | disposition home or self-care (01) ==
PROVIDERS: PCP Internal Medicine; Visit Provider Internal Medicine
DX: Z00.00 Encounter for general adult medical examination without abnormal findings (principal)
CPT/HCPCS: 99396

== ENCOUNTER 2024-12-09 16:54 | Outpatient (AMB) | payer OTHER, SELFPAY ==
--- NOTE | 2024-12-09 16:59 | A.OFFPC_ITS ---
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 Required: No Accompanied by: Daughter Allergies latex [Latex] Allergy (Mild, Verified 12/09/24 17:05) RASH/ITCH Medication List - Last Reconciled 12/09/24 by Jessika Richards MD ibuprofen 600 mg PO TID semaglutide (weight loss) (Wegovy) 0.25 mg (0.5 mL) subcut QWEEK 4 weeks Tobacco use date assessed: 12/09/24 Dental Screening Dental Screen Date: 12/09/24 Did you have a dental visit in the last 12 months?: No Did you have a dental problem in the last 6 months where you did not have access to dental care?: No Was dental information given to patient?: Patient has dentist HPI HPI Comments History of Present Illness Details The patient is a 44-year-old female presenting with symptoms of an u pper respiratory infection and concerns regarding obesity management. Following a recent trip to [place], she developed congestion, a persistent cough, and nocturnal fever sensations. These symptoms emerged shortly after her return and have not improved with TeraFlu. She has a history of undergoing bariatric surgery five years ago, which has been followed by challenges in maintaining weight loss, resulting in a current BMI of Class II obesity. The patient maintains a controlled diet and hydration, although recent gym attendance has lapsed. She seeks further assistance in weight management due to persistent excess weight post-surgery. [facility] Medical History (Updated 12/09/24 @ 17:15 by Jessika Richards MD) Obesity, Class II, BMI 35-39.9 Tubal ligation evaluation Upper back pain Right shoulder pain Anemia Surgical History History of tubal ligation Hx of breast reduction, elective Hx laparoscopic cholecystectomy History of carpal tunnel release H/O gastric sleeve Family History Mother High blood pressure Diabetes Father Diabetes High blood pressure Social History Housing: Apartment Alcohol intake: current Alcohol intake frequency: holidays/special occasions only Alcohol type: beer Patient Tobacco Use Status: Never used Tobacco e-Cigarette/Vaping Use: Never Used Second Hand Smoke Exposure: Yes service: No Current occupational status: employed 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 1. Little interest or pleasure in doing things: not at all 2. Feeling down, depressed, or hopeless: not at all 3. Trouble falling or staying asleep, or sleeping too much: not at all 4. Feeling tired or having little energy: not at all 5. Poor appetite or overeating: not at all 6. Feeling bad about yourself - or that you are a failure or have let yourself or your family down: not at all 7. Trouble concentrating on things, such as reading the newspaper or watching television: not at all 8. Moving or speaking so slowly that other people could have noticed. Or the opposite - being so fidgety or restless that you have been moving around a lot more than usual: not at all 9. Thoughts that you would be better off or of hurting yourself in some way: not at all Total score: 0 Depression Screening Interpretation: Negative Depression Screening Done: Yes 07532 - PHQ-9 Billing: Yes Source: Developed by Drs. Abhi Ramirez, Keila Grove, Rafael Fleming and colleagues, with an educational suzanne from [employer] Thrive Questionnaire Date Thrive assessed: 12/09/24 I am a: Patient What is your living situation today?: I have a steady place to live Within the past 12 months, did the food you bought not last and you didn't have the money to get more?: Never true Within the past 12 months, did you worry whether your food would run out before you got money to buy more?: Never true Do you have trouble paying for medicines?: No Do you have trouble getting transportation to medical appointments?: No Do you have trouble paying your heating and electricity bill?: No Do you have trouble taking care of your child, family member or friend?: No Do you have trouble with day-to-day activities such as bathing, preparing meals, shopping, managing finances, etc.?: No Are you currently unemployed and looking for a job?: No Are you interested in more education?: No Please select the resources that you would like help with: None Currently or been in a relationship where the following occur: No concerns reported THRIVE Score: 0 AUDIT C Alcohol Use Questionnaire (AUDIT-C) 1. How often do you have a drink containing alcohol?: Monthly or less 2. How many drinks containing alcohol do you have on a typical day when you are drinking?: 1 or 2 3. How often do you have six or more drinks on one occasion?: Never Total Score: 1 Score Reviewed/Action Taken: No TOBI-7 AMB Questionnaire TOBI-7 Date TOBI - 7 assessed: 12/09/24 Feeling nervous, anxious, or on edge: 0 = Not at all Not being able to stop or control worryin = Not at all Worrying too much about different things: 0 = Not at all Trouble relaxin = Not at all Being so restless that it is hard to sit still: 0 = Not at all Becoming easily annoyed or irritable: 0 = Not at all Feeling afraid as if something awful might happen: 0 = Not at all Total TOBI-7 score (0-4 normal; 5-9 mild; 10-14 moderate; 15-21 severe): 0 Source: Developed by Drs. Abhi Ramirez, Keila Grove, Rafael Fleming and colleagues, with an educational suzanne from [employer] TOBI-7 Assessment Billing TOBI-7 Assessment Tool: TOBI-7 Assessment 48082 Review of Systems Const All systems reviewed & are unremarkable except as noted in HPI and below Card Denies chest pain at rest, Denies chest pain with activity, Denies edema, Denies irregular heart rhythm, Denies claudication, Denies dyspnea, Denies dyspnea on exertion, Denies orthopnea, Denies paroxysmal nocturnal dyspnea and Denies slow heart rate Resp Denies cough, Denies dyspnea and Denies dyspnea on exertion GI Denies abdominal pain, Denies change in bowel habits, Denies excessive flatus, Denies nausea and Denies vomiting Physical exam (Primary Care) Vital Signs: Last Vital Signs BP 118/76 12/09/24 17:02 BMI result Body Mass Index 34.4 Tobacco/Smoking Status: Tobacco use Status Tobacco use date assessed 12/09/24 12/09/24 17:03 Patient Tobacco Use Status Never used Tobacco 12/09/24 17:03 e-Cigarette/Vaping Use Never Used 12/09/24 17:03 PHQ-9: PHQ-9 Score PHQ-9: Total score 0 12/09/24 17:03 Depression Screening Interpretation: Negative Thrive Assessment: Date of Thrive Assessment Date Thrive assessed 12/09/24 12/09/24 17:03 Currently or been in a relationship where the following occur: No concerns reported Resp Effort & Inspection: normal respiratory effort Auscultation: clear to auscultation bilaterally Cardio Jugular venous distension: no JVD Rate: regular rate Rhythm: regular rhythm Heart sounds: S1 normal heart sound present and S2 normal heart sound present Extrem General: Yes full ROM Coding Level of Care Code Est Pt Level 3 (28296) Complex EM visit Add On G2211 Diagnoses URI (upper respiratory infection) J06.9 Class 1 obesity with body mass index (BMI) of 34.0 to 34.9 in adult E66.9; Z68.34 Additional Codes PHQ-9 - 75299 - PHQ-9 Billing: Yes ([id number]) TOBI-7 Assessment Billing - TOBI-7 Assessment Tool: TOBI-7 Assessment 02691 ([id number]) Time Spent (min) 19 Assessment & Plan Assessment & Plan (1) URI (upper respiratory infection): Code(s): J06.9 - Acute upper respiratory infection, unspecified Category: Medical (2) Class 1 obesity with body mass index (BMI) of 34.0 to 34.9 in adult: Code(s): E66.9 - Obesity, unspecified; Z68.34 - Body mass index [BMI] 34.0-34.9, adult Category: Medical Plan During this follow-up visit, I addressed the patient's upper respiratory symptoms, suggesting an antibiotic to potentially treat bacterial causes due to her recent ineffective response to OTC medications. In managing her obesity, I acknowledged the potential for alternative pharmacological therapy, considering insurance coverage limitations, while emphasizing continued dietary and renewed physical activity efforts. Future lab work is aligned with her annual physical in April to monitor progress and support her overall health goals. Additionally, I coordinated specialist consultations for comprehensive care. Patient was informed and verbally consented to the use of an ambient scribe for clinic note documentation during this visit. I discussed the possibility of prescribing an antibiotic to treat her persistent respiratory symptoms, considering the chronicity and ineffectiveness of OTC treatments thus far. We also discussed potential alternatives to Wegovy for her obesity management given insurance limitations, considering options like tirzepatide. Encouraged continuity in dietary control and exploration of physical exercise as weight management strategies. Coordinated future lab work with her April physical, addressing her long-term post-bariatric care needs. Advised on the importance of specialist consultations for thorough health monitoring, notably with regard to oncological history. Emphasized the significance of maintaining health with regular check-ups following her recent travel history. Orders: Orders Lipid Panel 5 Months E66.9 - Obesity, unspecified, E78.5 - Hyperlipidemia, unspecified, Z68.34 - Body mass index [BMI] 34.0-34.9, adult Comprehensive Met. Panel 5 Months E66.9 - Obesity, unspecified, Z68.34 - Body mass index [BMI] 34.0-34.9, adult Referrals COLLECTION CLERK Referral Z12.4 - Encounter for screening for malignant neoplasm of cervix Medications: Refilled ibuprofen 600 mg PO TID 90 tabs 0RF semaglutide (weight loss) (Wegovy) administer weeks 1 through 4 of therapy 0.25 mg (0.5 mL) subcut QWEEK 4 weeks 2 mL 0RF E66.9 - Obesity, unspecified, Z68.34 - Body mass index [BMI] 34.0- 34.9, adult Patient Instructions: - Start taking the prescribed antibiotic. - Continue controlled dietary habits and increase physical activity as able. - Schedule the next lab tests and physical for April. - Follow up with a spreader box operator as directed. - Report any worsening or persistent symptoms.
[2024-12-09 17:02] VITALS: BP 118/76; BMI 34.4
--- OUTSIDE RECORDS SUMMARY | 2024-12-09 18:11 | XMS_ITS | Clinical Summary ---
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 Phone Unavailable Primary Care Provider Unavailabl e Social History Tobacco Use Types Packs/Day Years Used Date Smoking Tobacco: Never Assessed Comments Unknown Sex and Gender Information Value Date Recorded Sex Assigned at Not on file Legal Sex Female 4:17 AM EST Gender Identity Not on file Sexual Orientation Not on file Plan of Treatment Health Maintenance Due Date Last Done Comments Breast Cancer Screening 1978 DTaP,Tdap,and Td Vaccines (1 - Tdap) 1997 Hepatitis B Vaccines (1 of 3 - 19+ 3-dose series) 1997 Cervical Cancer Screening: P ap Smear 1999 COVID-19 Vaccine (2023-2 5 season) 2024 Influenza Vaccine (#1) 2024 HIB Vaccines Aged Out No longer eligi ble based on patient's age to complete this topic HPV Vaccines Aged Out No longer eligi ble based on patient's age to complete this topic Hepatitis A Vaccines Aged Out No long er eligible based on patient's age to complete this topic IPV Vaccines Aged Out No longer eligi ble based on patient's age to complete this topic MMR Vaccines Aged Out No longer eligi ble based on patient's age to complete this topic Meningococcal ACWY Vaccine Aged Out N o longer eligible based on patient's age to complete this topic Meningococcal B Vacine Aged Out No lo nger eligible based on patient's age to complete this topic Pneumococcal Vaccine: Pediat rics (0 to 5 Years) and At-Risk Patients (6 to 64 Years) Aged Out No longer eligible b ased on patient's age to complete this topic RSV Immunization Patients Un hcio 20 months Aged Out No longer eligible b ased on patient's age to complete this topic Varicella Vaccines Aged Out No longer eligible based on patient's age to complete this topic
== END 2024-12-09 17:13 | disposition home or self-care (01) ==
LOC: HO.HMCH 16:55
PROVIDERS: PCP Internal Medicine; Visit Provider Internal Medicine
DX: J06.9 Acute upper respiratory infection, unspecified (principal); E66.9 Obesity, unspecified; Z68.34 Body mass index [BMI] 34.0-34.9, adult

== ENCOUNTER → 2024-12-09 16:54 | Outpatient (BNVA) | payer OTHER, SELFPAY | PROVIDERS: PCP Internal Medicine; Visit Provider Internal Medicine | DX: J06.9 Acute upper respiratory infection, unspecified (principal); E66.9 Obesity, unspecified; Z68.34 Body mass index [BMI] 34.0-34.9, adult | CPT/HCPCS: 96127 ==

== ENCOUNTER 2025-02-04 18:01 | Emergency (ER) | payer OTHER, SELFPAY ==
--- NOTE | ~2025-02-04 | XR_ITS ---
CLINICAL HISTORY: R low back pain 3 views lumbar spine Comparison: None Findings: Normal vertebral body alignment. No acute fractures or dislocation. No significant degenerative change. IMPRESSION: No acute findings. This document has been electronically signed by: Emeli Mcdaniels MD on 02/04/2025 19:14:17
[2025-02-04 18:12] VITALS: BP 138/90; PULSE 102; RESP 16; TEMP 36.9; O2SAT 98; BMI 34.6
--- NOTE | 2025-02-04 18:24 | ED_ITS ---
HPI - Back Pain/Injury General Chief Complaint: Back Pain/Injury Stated Complaint: lower right back/buttocks pain Time Seen by Provider: 02/04/25 21:44 Source: patient Limitations: no limitations History of Present Illness ED Provider: Renay Issa PA-C HPI Narrative: 44-year-old female with a history of obesity, presents with right-sided low back pain x2 days. Pain over right low back with radiation to right buttock. Denies weakness of lower extremities, paresthesia, urinary retention or bowel incontinence. Patient states she performs repetitive physical activities at work. No fall. Related Data Previous Rx's ?Medication ?Instructions ?Recorded amoxicillin 500 mg tablet 500 mg PO BID 7 days #14 tabs 12/09/24 ibuprofen 600 mg tablet 600 mg PO TID #90 tabs 12/09/24 semaglutide (weight loss) 0.25 0.25 mg (0.5 mL) subcut QWEEK 4 12/09/24 mg/0.5 mL subcutaneous pen weeks #2 mL injector (Wegovy) ketorolac 10 mg tablet 10 mg PO Q6H PRN pain #20 tabs 02/04/25 methocarbamol 750 mg tablet 1,500 mg (2 x 750 mg) PO Q8H PRN 02/04/25 pain, moderate #20 tabs Allergies Allergy/AdvReac Type Severity Reaction Status Date / Time latex [Latex] Allergy Mild RASH/ITCH Verified 02/04/25 18:13 Review of Systems Review of Systems: Yes all other systems are reviewed and are negative Constitutional: Constitutional: Denies fatigue and Denies fever(s) Cardiovascular: Cardiovascular: Denies chest pain Musculoskeletal: Musculoskeletal: Reports back pain, Denies muscle weakness, Denies numbness, Reports radiating pain into limb and Denies tingling Neurologic: Denies numbness and Denies tingling Endocrine: Endocrine: Denies fatigue PMFSH Past Medical History Attestation statement: The following information was validated with the patient. Medical History Obesity, Class II, BMI 35-39.9 Tubal ligation evaluation Upper back pain Right shoulder pain Anemia Surgical History History of tubal ligation Hx of breast reduction, elective Hx laparoscopic cholecystectomy History of carpal tunnel release H/O gastric sleeve Family History Family History Mother High blood pressure Diabetes Father Diabetes High blood pressure Social History Social History Housing: Apartment Alcohol intake: current Alcohol intake frequency: holidays/special occasions only Alcohol type: beer Patient Tobacco Use Status: Never used Tobacco e-Cigarette/Vaping Use: Never Used Second Hand Smoke Exposure: Yes Advance Directives: No Advance Directives Information Provided: Yes service: No Current occupational status: employed 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, 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 Current occupational exposures/hazards: No Cognitive needs: No Hearing needs: No Vision needs: Yes Physical Exam Vital Signs: Vital Signs: Last Vital Signs Temp 98.4 F 02/04/25 18:12 Pulse 102 H 02/04/25 18:12 Resp 16 02/04/25 18:12 BP 138/90 H 02/04/25 18:12 Pulse Ox 98 02/04/25 18:12 O2 Del Method Room Air 02/04/25 18:12 BMI result Body Mass Index 34.6 Const: Other: Alert well-appearing Orientation/consciousness: patient oriented x3 Resp: Effort & Inspection: normal respiratory effort Cardio: Other: Normal peripheral perfusion Skin: Other: Warm dry no rash Neuro: General: patient oriented x3, gait normal, no focal motor deficits and CN's II-XI intact bilaterally Extrem: Other: Strength 5/5 bilateral lower extremities Psych: Other: Cooperative Course Course Course Narrative: This is a Rapid Medical Exam performed in triage by Nancy Mary PA-C. Full HPI, ROS and PE to be performed by primary ED provider. 44 yo F presenting to the ED c/o R sided low back pain radiating to buttock x2 days. Denies injury, trauma, fall, incontinence/retention, dysuria/hematuria PE: Ambulating with steady gait. No ataxia. Plan: UA, x-ray Medications Administered Discontinued Medications Generic Name Dose Route Start Last Admin Trade Name Freq PRN Reason Stop Dose Admin Ketorolac Tromethamine 15 mg 02/04/25 22:18 02/04/25 22:30 Ketorolac Tromethamine 15 Mg/Ml Vial IM 02/04/25 22:19 15 mg ONCE ONE Administration Medical Decision Making Medical Decision Making [facility] Narrative: 44-year-old female with a history of obesity, presents with right-sided low back pain x2 days. Pain over right low back with radiation to right buttock. Denies weakness of lower extremities, paresthesia, urinary retention or bowel incontinence. Patient states she performs repetitive physical activities at work. No fall. No chronic issues History: Per patient I have considered the following differential diagnoses: Lumbar strain, lumbar radiculopathy, cauda equina, compression fracture Plan: X-ray obtained from triage, it is unremarkable, the patient is having radicular symptoms without red flag signs symptoms concerning for cord compression. We will treat accordingly. I have independently reviewed the following tests: Labs: Not , urine not infected X-ray lumbar spine:Findings: Normal vertebral body alignment. No acute fractures or dislocation. No significant degenerative change. IMPRESSION: No acute findings. Lab Data Labs: Lab Results 02/04/25 Range/Units 18:21 Urine Color Yellow Urine Appearance Clear Urine pH 6.0 (5.0-9.0) Ur Specific [place] >= 1.030 H (1.005-1.025) Urine Protein Negative (Neg-Trace) mg/dL Urine Glucose (UA) Negative (Negative) mg/dL Urine Ketones Trace (Negative) mg/dL Urine Blood Negative (Negative) Urine Nitrite Negative (Negative) Ur Leukocyte Esterase Negative (Negative) Urine Test NEGATIVE (NEGATIVE) Discharge Plan Discharge Clinical Impression: Acute right lumbar radiculopathy Patient Disposition: Home, Self-Care Instructions: Lumbar Radiculopathy (ED), Lower Back Exercises (ED) Additional Instructions: The x-ray was normal, you did not sustain an acute fracture. You are being treated for lumbar radiculopathy or sciatica. See home care instructions. Take the ketorolac as directed this is an anti-inflammatory take it with food. Use the methocarbamol as needed for further pain, this is a muscle relaxant. To know it will cause drowsiness do not drive or operate machinery while taking the medication. Follow up with your primary care provider as needed. Prescriptions: New ketorolac 10 mg tablet 10 mg PO Q6H PRN (Reason: pain) Qty: 20 0RF Rx Instructions: maximum total duration of 5 days from all oral, intranasal, or parenteral formulations. The patient had an intramuscular dose of Toradol in the emergency department. methocarbamol 750 mg tablet 1,500 mg PO Q8H PRN (Reason: pain, moderate) Qty: 20 0RF No Action ibuprofen 600 mg tablet 600 mg PO TID Qty: 90 0RF Wegovy 0.25 mg/0.5 mL pen injector 0.25 mg subcut QWEEK 28 Days Qty: 2 0RF Rx Instructions: administer weeks 1 through 4 of therapy amoxicillin 500 mg tablet 500 mg PO BID 7 Days Qty: 14 0RF Stand Alone Forms: Work/School Release Print Language: Tamazight
[2025-02-04 18:58] LABS: Appearance Urine Clear; Color Urine Yellow; Glucose Urine UA Negative (Negative); Leukocyte Esterase Urine Negative (Negative); Nitrite Urine Negative (Negative); Specific Gravity - Urine >= 1.030 (1.005-1.025); Urine Blood Negative (Negative); Urine Ketones Trace mg/dL (Negative); Urine Protein Negative (Neg-Trace)
[2025-02-04 19:00] LABS: UPreg QC Valid YES; Urine Pregnancy NEGATIVE (NEGATIVE)
[2025-02-04] MEDS: Ketorolac Tromethamine 15 MG/ML VIAL IM (22:30)
[2025-02-04 23:07] VITALS: BP 138/90; PULSE 102; RESP 16; TEMP 36.9; O2SAT 98
== END 2025-02-04 23:07 | disposition home or self-care (01) ==
PROVIDERS: Physician Assistant; Emergency Provider Emergency Medicine Emergency Medical Services; PCP Internal Medicine
DX: M54.16 Radiculopathy, lumbar region (principal); M54.50 Low back pain, unspecified; E66.9 Obesity, unspecified; Z68.34 Body mass index [BMI] 34.0-34.9, adult; Z79.899 Other long term (current) drug therapy
CPT/HCPCS: 72100; 81003; 81025; 96372; 99283; 99284; J1885

== ENCOUNTER → 2025-02-04 18:18 | Outpatient (BNV) | payer OTHER, SELFPAY | PROVIDERS: PCP Internal Medicine; Visit Provider Student in an Organized Health Care Education/Training Program | DX: M54.50 Low back pain, unspecified (principal) | CPT/HCPCS: 72100 ==

== ENCOUNTER 2025-04-28 08:59 | Outpatient (REF) | payer OTHER, SELFPAY ==
--- OUTSIDE RECORDS SUMMARY | 2025-04-28 09:29 | XMS_ITS | Clinical Summary ---
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 Role Phone Unavailable Primary Care Provider Unavailabl e Social History Tobacco Use Types Packs/Day Years Used Date Smoking Tobacco: Never Assessed Comments Unknown Sex and Gender Information Value Date Recorded Sex Assigned at Not on file Legal Sex Female 4:17 AM EST Gender Identity Not on file Sexual Orientation Not on file Plan of Treatment Upcoming Encounters Date Type Department Care Team ([facility] Contact Info) Description 08/26/2025 9:00 AM EST Office Visit Bariatric Surgery - [place] [address] [facility] [address] [place] [phone] Akash Wall MD [address] [address] Health Maintenance Due Date Last Done Comments Breast Cancer Screening 1978 DTaP,Tdap,and Td Vaccines (1 - Tdap) 1997 Hepatitis B Vaccines (1 of 3 - 19+ 3-dose series) 1997 Cervical Cancer Screening: P ap Smear 1999 COVID-19 Vaccine ( - 2023-2 5 season) 2024 Depression Screening 09/11/2024 Influenza Vaccine (#1) 2025 HIB Vaccines Aged Out No longer eligi [...] age to complete this topic Meningococcal B Vaccine Aged Out No l onger eligible based on patient's age to complete this topic Pneumococcal Vaccine: Pediat rics (0 to 5 Years) and At-Risk Patients (6 to 49 Years) Aged Out No longer eligible b ased on patient's age to complete this topic RSV Immunization Patients Un chio 20 months Aged Out No longer eligible b ased on patient's age to complete this topic Varicella Vaccines Aged Out No longer eligible based on patient's age to complete this topic
[2025-04-28 11:13] LABS: Alanine Aminotransferase 16 U/L (0-31); Albumin Level 3.9 g/dL (3.5-5.0); Alkaline Phosphatase 60 U/L (39-117); Anion Gap 10 (12-20); Aspartate Amino Transferase 20 U/L (5-31); Blood Urea Nitrogen 8 mg/dL (9-16); Calcium 9.0 mg/dL (8.4-10.2); Carbon Dioxide 28 mmol/L (22-29); Chloride 108 mmol/L (96-108); Cholesterol 237 mg/dL (<200); Estimated Glomerular Filt Rate > 60; HDL Cholesterol 67 mg/dL (>40); Potassium 3.8 mmol/L (3.3-5.1); Sodium 142 mmol/L (135-145); Total Protein 6.8 g/dL (6.5-8.0); Triglycerides 96 mg/dL (<150)
== END 2025-04-28 09:00 | disposition home or self-care (01) ==
LOC: HO.LAB 08:59
PROVIDERS: PCP Internal Medicine; Visit Provider Internal Medicine
DX: E78.5 Hyperlipidemia, unspecified (principal); E66.9 Obesity, unspecified; Z68.34 Body mass index [BMI] 34.0-34.9, adult
CPT/HCPCS: 36415; 80053; 80061

== ENCOUNTER 2025-04-29 08:23 | Outpatient (AMB) | payer OTHER, SELFPAY ==
[2025-04-29 08:34] VITALS: BP 132/70; PULSE 75; O2SAT 98; BMI 35.1
--- NOTE | 2025-04-29 08:34 | A.OFFPC_ITS ---
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 Has history of anemia. She is obese with a BMI of 35 and wants to try glp 1 agonist. Has tried diet and exercise. Had weight loss surgery in 2019. She has a history of latex allergy and uses ibuprofen as needed. Her surgical history includes breast reduction, tubal ligation, carpal tunnel release, cholecystectomy, and gastric sleeve surgery in 2019. Family history is significant for diabetes and hypertension in both parents. The patient has not had a Pap smear recently and is considered a new patient for gynecology. She has not undergone a colonoscopy due to lack of insurance at the time, but was sent a Cologuard test instead. [facility] Medical History (Updated 04/29/25 @ 08:55 by Jessika iRchards MD) Obesity, Class II, BMI 35-39.9 Tubal ligation evaluation Upper back pain Right shoulder pain Anemia Surgical History History of tubal ligation Hx of breast reduction, elective Hx laparoscopic cholecystectomy History of carpal tunnel release H/O gastric sleeve Family History Mother High blood pressure Diabetes Father Diabetes High blood pressure Social History (Updated 04/29/25 @ 08:50 by Jessika Richards MD) Housing: Apartment Alcohol intake: current Alcohol intake frequency: a few times a month Alcohol type: beer Patient Tobacco Use Status: Never used Tobacco Tobacco use type: Cigarette e-Cigarette/Vaping Use: Never Used Second Hand Smoke Exposure: Yes service: No Current occupational status: employed 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 1. Little interest or pleasure in doing things: not at all 2. Feeling down, depressed, or hopeless: not at all 3. Trouble falling or staying asleep, or sleeping too much: several days 4. Feeling tired or having little energy: several days 5. Poor appetite or overeating: more than half the days 6. Feeling bad about yourself - or that you are a failure or have let yourself or your family down: not at all 7. Trouble concentrating on things, such as reading the newspaper or watching television: not at all 8. Moving or speaking so slowly that other people could have noticed. Or the opposite - being so fidgety or restless that you have been moving around a lot more than usual: not at all 9. Thoughts that you would be better off or of hurting yourself in some way: not at all Total score: 4 Depression Screening Interpretation: Positive Depression Screening Follow-up: Existing condition and Follow-up Visit Requested Depression Screening Done: Yes 34000 - PHQ-9 Billing: Yes Source: Developed by Drs. Abhi Ramriez, Keila Grove, Rafael Fleming and colleagues, with an educational suzanne from [employer]. Thrive Questionnaire Date Thrive assessed: 04/29/25 I am a: Patient What is your living situation today?: I have a steady place to live Within the past 12 months, did the food you bought not last and you didn't have the money to get more?: Never true Within the past 12 months, did you worry whether your food would run out before you got money to buy more?: Never true Do you have trouble paying for medicines?: No Do you have trouble getting transportation to medical appointments?: No Do you have trouble paying your heating and electricity bill?: No Do you have trouble taking care of your child, family member or friend?: No Do you have trouble with day-to-day activities such as bathing, preparing meals, shopping, managing finances, etc.?: No Are you currently unemployed and looking for a job?: No Are you interested in more education?: No Please select the resources that you would like help with: None Currently or been in a relationship where the following occur: No concerns reported THRIVE Score: 0 AUDIT C Alcohol Use Questionnaire (AUDIT-C) 1. How often do you have a drink containing alcohol?: Monthly or less 2. How many drinks containing alcohol do you have on a typical day when you are drinking?: 3 or 4 3. How often do you have six or more drinks on one occasion?: Less than monthly Total Score: 3 TOBI-7 AMB Questionnaire TOBI-7 Date TOBI - 7 assessed: 12/09/24 Feeling nervous, anxious, or on edge: 0 = Not at all Not being able to stop or control worryin = Not at all Worrying too much about different things: 1 = Several days Trouble relaxin = Several days Being so restless that it is hard to sit still: 0 = Not at all Becoming easily annoyed or irritable: 1 = Several days Feeling afraid as if something awful might happen: 0 = Not at all Total TOBI-7 score (0-4 normal; 5-9 mild; 10-14 moderate; 15-21 severe): 3 Source: Developed by Drs. Abhi Ramirez, Keila Grove, Rafael Fleming and colleagues, with an educational suzanne from [employer]. TOBI-7 Assessment Billing TOBI-7 Assessment Tool: TOBI-7 Assessment 26016 Review of Systems Const All systems reviewed & are unremarkable except as noted in HPI and below Card Denies chest pain at rest, Denies chest pain with activity, Denies edema, Denies irregular heart rhythm, Denies claudication, Denies dyspnea, Denies dyspnea on exertion, Denies orthopnea, Denies paroxysmal nocturnal dyspnea and Denies slow heart rate Resp Denies cough, Denies dyspnea and Denies dyspnea on exertion GI Denies abdominal pain, Denies change in bowel habits, Denies excessive flatus, Denies nausea and Denies vomiting Physical exam (Primary Care) Vital Signs: Last Vital Signs Pulse 75 04/29/25 08:34 BP 132/70 04/29/25 08:34 Pulse Ox 98 04/29/25 08:34 Oxygen Delivery Method Room Air 04/29/25 08:34 BMI result Body Mass Index 35.1 Tobacco/Smoking Status: Tobacco use Status Tobacco use date assessed 04/29/25 04/29/25 08:39 Patient Tobacco Use Status Never used Tobacco 04/29/25 08:39 Tobacco use type Cigarette 04/29/25 08:39 e-Cigarette/Vaping Use Never Used 04/29/25 08:39 PHQ-9: PHQ-9 Score PHQ-9: Total score 4 04/29/25 08:39 Depression Screening Interpretation: Positive Depression Screening Follow-up: Existing condition and Follow-up Visit Requested Thrive Assessment: Date of Thrive Assessment Date Thrive assessed 04/29/25 04/29/25 08:39 Currently or been in a relationship where the following occur: No concerns reported HENMT Head: Yes normal to inspection, Yes normocephalic and Yes atraumatic Ears: external ears normal Eyes General: appearance normal, both eyes and all related structures Eyelids: Yes eyelids normal Conjunctivae: conjunctivae normal Neck Neck: Yes normal visual inspection and Yes supple Resp Effort & Inspection: normal respiratory effort Auscultation: clear to auscultation bilaterally Cardio Jugular venous distension: no JVD Rate: regular rate Rhythm: regular rhythm Heart sounds: S1 normal heart sound present and S2 normal heart sound present GI Inspection: Yes normal to inspection Palpation (GI): Soft to palpation and nontender Auscultation: normal bowel sounds Skin General skin exam: no rashes or lesions noted Neuro General: no focal motor deficits Extrem General: Yes full ROM Psych Appearance: grossly normal Coding Level of Care Code Est Pt Level 3 (42925) Est Pt Prev Care 40-64y(96266) Diagnoses Physical exam Z00.00 Anemia D64.9 Obesity (BMI 35.0-39.9 without comorbidity) E66.9 Additional Codes TOBI-7 Assessment Billing - TOBI-7 Assessment Tool: TOBI-7 Assessment 65777 ([id number]) PHQ-9 - 27640 - PHQ-9 Billing: Yes ([id number]) Time Spent (min) 31 Assessment & Plan Assessment & Plan (1) Physical exam: Code(s): Z00.00 - Encounter for general adult medical examination without abnormal findings Category: Medical (2) Anemia: Code(s): D64.9 - Anemia, unspecified Category: Medical (3) Obesity (BMI 35.0-39.9 without comorbidity): Code(s): E66.9 - Obesity, unspecified Category: Medical Plan The patient will need to follow up on her preventative care measures, including scheduling a Pap smear and completing the Cologuard test for colon cancer scr eening. She should maintain a healthy lifestyle with proper diet and exercise to manage her low cardiovascular risk score, which is currently at 0.7%. The patient should be aware of her latex allergy and avoid exposure. She is advised to continue using ibuprofen as needed for pain management. Patient was informed and verbally consented to the use of an ambient scribe for clinic note documentation during this visit. Orders: Orders IRON PROFILE Today D64.9 - Anemia, unspecified MM tomosynthesis screening BI Today Z12.31 - Encounter for screening mammogram for malignant neoplasm of breast Complete Blood Count Auto Diff Today D64.9 - Anemia, unspecified Referrals Cologuard Test Z12.11 - Encounter for screening for malignant neoplasm of colon, Z12.12 - Encounter for screening for malignant neoplasm of rectum Medications: New tirzepatide (weight loss) (Zepbound) for 4 weeks 2.5 mg (0.5 mL) subcut QWEEK 2 mL 0RF 4 weeks E66.9 - Obesity, unspecified
== END 2025-04-29 08:56 | disposition home or self-care (01) ==
LOC: HO.HMCH 08:24
PROVIDERS: PCP Internal Medicine; Visit Provider Internal Medicine
DX: Z00.00 Encounter for general adult medical examination without abnormal findings (principal); D64.9 Anemia, unspecified; E66.9 Obesity, unspecified; Z68.35 Body mass index [BMI] 35.0-35.9, adult

== ENCOUNTER 2025-04-29 08:23 | Outpatient (REF) | payer OTHER, SELFPAY ==
[2025-04-29 09:18] LABS: MANUAL DIFF FLAG NO
[2025-04-29 09:32] LABS: Hematocrit 36.7 % (37.0-47.0); Hemoglobin 11.9 g/dl (12.0-16.0); Imm Gran Abs Auto 0.02 X10*3/uL (0.00-0.03); Imm Gran Pct Auto 0.2 % (0.0-0.4); Lymphocytes Absolute Auto 1.7 X10*3/uL (1.2-4.9); Mean Corpuscular HGB Conc 32.4 g/dl (31.0-35.0); Mean Corpuscular Hemoglobin 27.4 pg (27.0-33.0); Mean Corpuscular Volume 84.6 fL (80.0-98.0); NRBC Abs Auto 0.000 X10*3/uL (0.0-0.012); NRBC Pct Auto 0.0 /100WBC (0.0-0.2); Platelet Count 472 X10*3/uL (160-400); Red Blood Count 4.34 X10*6/uL (4.20-5.50); White Blood Count 9.3 X10*3/uL (4.8-10.8)
[2025-04-29 10:06] LABS: Iron 75 mcg/dL (30-160); Percent Iron Saturation 19 % (15-50); Total Iron Binding Capacity 388 mcg/dL (228-428); Unsaturated Iron Binding 313 ug/dL
== END 2025-04-29 08:24 | disposition home or self-care (01) ==
LOC: HO.LAB 08:23
PROVIDERS: PCP Internal Medicine; Visit Provider Internal Medicine
DX: Z00.00 Encounter for general adult medical examination without abnormal findings (principal); D64.9 Anemia, unspecified; E66.9 Obesity, unspecified; Z68.35 Body mass index [BMI] 35.0-35.9, adult
CPT/HCPCS: 36415; 83540; 85025; 96127

== ENCOUNTER 2025-07-05 08:14 | Outpatient (REF) | payer OTHER, SELFPAY ==
--- NOTE | ~2025-07-05 | MM_ITS ---
EXAMINATION: MM SCREENING DIGITAL BREAST TOMOSYNTHESIS, BILATERAL CLINICAL INFORMATION: Screening. Asymptomatic. COMPARISON: Mammography: Comparison is made with available priors TECHNIQUE: Digital breast mammography with tomosynthesis is performed in both the craniocaudal and mediolateral oblique views along with computer-aided detection (CAD). FINDINGS: There are scattered areas of fibroglandular density. Bilateral reduction mammoplasty. There are no significant masses, abnormal calcifications, or other abnormalities. MM/MM tomosynthesis screening BI IMPRESSION: No mammographic evidence of malignancy. ASSESSMENT: BI-RADS Category 2: Benign RECOMMENDATION: Routine annual mammography screening. 1 year F/U This examination should not preclude the clinical evaluation of a suspicious palpable abnormality. This patient's information was entered into a reminder system with a target due date for their next mammogram. Electronically signed by: Nancy Packer DO 07/08/2025 11:44 AM EDT
== END 2025-07-05 08:15 | disposition home or self-care (01) ==
LOC: HO.MAMMO 08:14
PROVIDERS: PCP Internal Medicine; Visit Provider Internal Medicine
DX: Z12.31 Encounter for screening mammogram for malignant neoplasm of breast (principal)
CPT/HCPCS: 77063; 77067

== ENCOUNTER → 2025-07-05 08:15 | Outpatient (BNV) | payer OTHER, SELFPAY | PROVIDERS: PCP Internal Medicine; Visit Provider Internal Medicine | DX: Z12.31 Encounter for screening mammogram for malignant neoplasm of breast (principal) | CPT/HCPCS: 77063; 77067 ==